=== PATIENT | female | born 1980 | race Caucasian/White ===

== ENCOUNTER 2017-10-22 21:49 | Emergency (ER) | END 2017-10-23 03:01 | disposition home or self-care (01) ==

== ENCOUNTER 2018-01-14 22:41 | Emergency (ER) | END 2018-01-14 23:48 | disposition home or self-care (01) ==

== ENCOUNTER 2019-02-17 22:29 | Emergency (ER) | payer SELFPAY ==
[~2019-02-17] VITALS: Ht 160 cm; Wt 89.0 kg
[~2019-02-17 22:29] MED LIST: ACET500C5 PO; ALBU18HF INHALATION; D-ME473S2 PO; IBUP-1542 PO; PSEU60TA21 PO
[2019-02-17 22:33] VITALS: Ht 160 cm; Wt 89.0 kg
[2019-02-17] MEDS ORDERED: SODIUM CHLORIDE 0.9% 1L BAG IV* STA (22:37)
[2019-02-17] MEDS ORDERED: ACETAMINOPHEN 325 MG TAB PO ONE (23:00)
[2019-02-18] MEDS ORDERED: IBUPROFEN 600 MG TAB PO ONE (01:00)
[2019-02-18 01:39] VITALS: BP 101/63; PULSE 90; RESP 16
== END 2019-02-18 01:40 | disposition home or self-care (01) ==
LOC: E/R 22:29
DX: R50.9 Fever, unspecified (principal); D64.9 Anemia, unspecified; D69.6 Thrombocytopenia, unspecified; J45.909 Unspecified asthma, uncomplicated; R07.9 Chest pain, unspecified
CPT/HCPCS: 36415; 71045; 80053; 81001; 81025; 83605; 84436; 84443; 84479; 84484; 85025; 85610; 85730; 87040; 87086; 93005; 99285; J7030; 81003

== ENCOUNTER 2019-02-18 21:56 | Emergency (ER) | payer SELFPAY ==
[~2019-02-18] VITALS: Ht 160 cm; Wt 90.3 kg
[2019-02-18 21:57] VITALS: BP 133/56; PULSE 83; RESP 18; Ht 160 cm; Wt 90.3 kg
== END 2019-02-18 23:26 | disposition home or self-care (01) ==
LOC: FTE 21:56
DX: R51 Headache (principal); J45.909 Unspecified asthma, uncomplicated
CPT/HCPCS: 99282